=== PATIENT | male | born 1960 | race Caucasian/White ===

== ENCOUNTER 2022-05-04 15:00 | Emergency (ER) | payer OTHER | END 2022-05-04 17:10 | disposition home or self-care (01) | LOC: JD.ED 15:00 | DX: S06.9X1A Unspecified intracranial injury with loss of consciousness of 30 minutes or less, initial encounter (principal); S00.03XA Contusion of scalp, initial encounter; S30.1XXA Contusion of abdominal wall, initial encounter; M19.90 Unspecified osteoarthritis, unspecified site; Z87.891 Personal history of nicotine dependence; W17.89XA Other fall from one level to another, initial encounter | CPT/HCPCS: 70450; 70450-26; 72131; 72131-26; 72192; 72192-26; 99284 ==

== ENCOUNTER 2022-10-22 09:30 | Day surgery (SDC) | payer OTHER ==
[~2022-10-22 09:30] MED LIST: Acetaminophen 325 MG Tab PO SCH; HYDROmorphone 0.5 MG/0.5 ML Syringe IVPUSH PRN; Lactated Ringers 1,000 ML IV SCH; Lactated Ringers 1,000 ML ONE; Lidocaine 1%/Sod Bicarbonate in NS 8.4% 1 ML Syringe IDERM PRN; Midazolam 1 MG/ML 2 ML SDV ONE; Morphine 8 MG, EPINEPHrine 0.3 MG, Cefuroxime 750 MG, Ketorolac 30 MG, Sodium Chloride ... PRN; Ondansetron 4 MG/2 ML SDV IVPUSH PRN; Ondansetron 4 MG/2 ML SDV ONE; Pregabalin 25 MG Cap PO SCH; Propofol 200 MG/20 ML SDV ONE; Sodium Chloride 0.9% 10 ML Syringe FLUSH PRN; Sodium Chloride 0.9% 10 ML Syringe FLUSH SCH; ceFAZolin 2 GM Vial ONE; fentaNYL 100 MCG/2 ML SDV IVPUSH PRN; fentaNYL 100 MCG/2 ML SDV ONE; oxyCODONE ER 10 MG TAB.ER PO SCH
[2022-10-22] MEDS ORDERED: Ropivacaine 0.5% 5 MG/ML 30 ML SDV ONE (09:53)
[2022-10-22] MEDS ORDERED: Dexmedetomidine 200 MCG/2 ML SDV ONE (09:53)
[2022-10-22] MEDS ORDERED: EPINEPHrine 1 MG/ML SDV ONE (09:53)
[2022-10-22] MEDS ORDERED: Vancomycin 1 GM SDV ONE (10:00)
[2022-10-22] MEDS ORDERED: Tranexamic Acid 1,000 MG/10 ML Vial ONE (10:00)
[2022-10-22] MEDS ORDERED: Ketorolac 30 MG/ML SDV ONE (11:31)
[2022-10-22] MEDS ORDERED: ePHEDrine 50 MG/ML SDV ONE (11:34)
[2022-10-22] MEDS ORDERED: oxyCODONE 5 MG Tab PO PRN (14:04)
== END 2022-10-22 15:55 | disposition home or self-care (01) ==
LOC: JD.SDS 09:30
PROVIDERS: ATTEND Orthopaedic Surgery
DX: M17.0 Bilateral primary osteoarthritis of knee (principal); E78.2 Mixed hyperlipidemia; G89.29 Other chronic pain; Z98.890 Other specified postprocedural states; Z79.82 Long term (current) use of aspirin; Z87.891 Personal history of nicotine dependence; Z79.899 Other long term (current) drug therapy
CPT/HCPCS: 0055T; 27447; 64447; 73560; 97116; 97161; A9270; C1713; C1776; J0171; J0690; J0697; J1885; J2250; J2270; J2405; J2704; J2795; J3010; J3370; J7120; 01402; J3490

== ENCOUNTER 2023-05-20 07:10 | Day surgery (SDC) | payer OTHER ==
[~2023-05-20 07:10] MED LIST changes: +Acetaminophen 325 MG Tab PO ONE; -Acetaminophen 325 MG Tab PO SCH; +EPINEPHrine 1 MG/ML SDV ONE; -HYDROmorphone 0.5 MG/0.5 ML Syringe IVPUSH PRN; -Lactated Ringers 1,000 ML ONE; -Lidocaine 1%/Sod Bicarbonate in NS 8.4% 1 ML Syringe IDERM PRN; -Midazolam 1 MG/ML 2 ML SDV ONE; -Ondansetron 4 MG/2 ML SDV IVPUSH PRN; -Ondansetron 4 MG/2 ML SDV ONE; +Pregabalin 25 MG Cap PO ONE; -Pregabalin 25 MG Cap PO SCH; -Propofol 200 MG/20 ML SDV ONE; +Ropivacaine 0.5% 5 MG/ML 30 ML SDV ONE; -ceFAZolin 2 GM Vial ONE; +dexmedeTOMIDine HCl 200 MCG/2 ML SDV ONE; -fentaNYL 100 MCG/2 ML SDV IVPUSH PRN; -fentaNYL 100 MCG/2 ML SDV ONE; +oxyCODONE ER 10 MG TAB.ER PO ONE; -oxyCODONE ER 10 MG TAB.ER PO SCH
[2023-05-20] MEDS ORDERED: ceFAZolin 2 GM Vial ONE (08:03)
[2023-05-20] MEDS ORDERED: Lactated Ringers 1,000 ML ONE (08:03)
[2023-05-20] MEDS ORDERED: Midazolam 1 MG/ML 2 ML SDV ONE (08:04)
[2023-05-20] MEDS ORDERED: Propofol 200 MG/20 ML SDV ONE ×2 (08:04→10:46)
[2023-05-20] MEDS ORDERED: fentaNYL 100 MCG/2 ML SDV ONE (08:04)
[2023-05-20] MEDS ORDERED: Vancomycin 1 GM SDV ONE (09:17)
[2023-05-20] MEDS ORDERED: Tranexamic Acid 1,000 MG/10 ML Vial ONE (09:17)
[2023-05-20] MEDS ORDERED: Ketorolac 30 MG/ML SDV ONE (10:46)
[2023-05-20] MEDS ORDERED: Ondansetron 4 MG/2 ML SDV ONE (10:46)
[2023-05-20] MEDS ORDERED: Ondansetron 4 MG/2 ML SDV IVPUSH PRN (10:51)
[2023-05-20] MEDS ORDERED: HYDROmorphone 0.5 MG/0.5 ML Syringe IVPUSH PRN (10:51)
[2023-05-20] MEDS ORDERED: fentaNYL 100 MCG/2 ML SDV IVPUSH PRN (10:51)
[2023-05-20] MEDS ORDERED: ePHEDrine 50 MG/ML SDV ONE (10:56)
== END 2023-05-20 13:56 | disposition home or self-care (01) ==
LOC: JD.SDS 07:10
PROVIDERS: ATTEND Orthopaedic Surgery
DX: M17.12 Unilateral primary osteoarthritis, left knee (principal); E78.2 Mixed hyperlipidemia; F17.200 Nicotine dependence, unspecified, uncomplicated; G89.29 Other chronic pain; M25.552 Pain in left hip; E66.9 Obesity, unspecified; Z68.30 Body mass index [BMI] 30.0-30.9, adult; Z01.818 Encounter for other preprocedural examination; Z79.899 Other long term (current) drug therapy
CPT/HCPCS: 0055T; 27447; 73560; 97161; A9270; C1713; C1776; J0171; J0690; J0697; J1885; J2250; J2270; J2405; J2704; J2795; J3010; J3370; J7030; J7120; 01402; 64447; J3490